=== PATIENT | female | born 1955 | race Hispanic/Latino ===

== ENCOUNTER 2024-05-01 20:28 | Emergency (ER) | payer OTHER ==
[2024-05-01] MEDS ORDERED: ZIPRASIDONE MESYLA 20 MG/VIAL IM ONE (20:58)
[2024-05-01] MEDS ORDERED: WATER FOR INJ,STERILE 10 ML ONE (20:59)
[2024-05-01] MEDS ORDERED: LORazepam 2 MG/ML VIAL ONE (22:31)
[2024-05-01] MEDS ORDERED: DIAZEPAM 10 MG/2 ML INJ SYRINGE ONE (22:49)
[2024-05-01] MEDS ORDERED: NA CHLORIDE 0.9% 250 ML ONE (23:15)
[2024-05-01] MEDS ORDERED: NA CHLORIDE 0.9% 3,000 ML ONE (23:15)
[2024-05-01] MEDS ORDERED: ACETAMINOPHEN 650MG/RECT SUPP PR ONE (23:15)
[2024-05-01] MEDS ORDERED: VANCOMYCIN 1 GM/VIAL ONE (23:15)
[2024-05-01] MEDS ORDERED: ACETAMINOPHEN 325 MG/SUPP PR ONE (23:15)
[2024-05-01] MEDS ORDERED: NA CHLORIDE 0.9% 100 ML ONE (23:16)
[2024-05-01] MEDS ORDERED: CEFEPIME 1 GM/VIAL ONE ×2 (23:16→23:48)
[2024-05-01] MEDS ORDERED: MORPHINE 4 MG/ML SYR ONE (23:37)
[2024-05-01] MEDS ORDERED: propofoL 1,000 MG/100 ML VIAL IV ONE (23:38)
[2024-05-01 23:43] LABS: Absolute Monocytes 0.8 K/uL (0.1-1.3); Absolute Neutrophil 6.5 K/uL (1.8-8.0); Basophils % 0.1 % (0-1.3); Hematocrit 41.7 % (36.0-45.0); Hemoglobin 14.2 g/dL (12.0-15.0); Lymphocytes % 11.5 % (15.3-44.8); MCH 32.6 pg (27.0-35.0); MCV 95.9 fL (80-100); MPV 8.7 fL (7.6-11.3); Monocytes % 9.4 % (3.3-12.3); Platelets 145 thou/uL (152-406); RBC Red Blood Cell Count 4.34 M/uL (3.86-4.86); Red Cell Distribution Width 13.3 % (12.1-15.2)
[2024-05-01 23:44] LABS: PT Prothrombin Time 11.5 SECONDS (9.4-12.5); PTT, Activated Partial Thromb 27.8 SECONDS (24.3-36.9); Protime INR 1.03
[2024-05-02] LABS: SARS-CoV-2 Antigen CONTROL BLUE LINE VIS/BG OK; SARS-CoV-2 Antigen Rapid Res Negative (Negative)
--- NOTE | 2024-05-02 00:08 | RAD REPORT ---
ADDENDUM #1 THIS REPORT CONTAINS FINDINGS THAT MAY BE CRITICAL TO PATIENT CARE: The findings were verbally discus sed via telephone conference with Dr. Blaine Vallecillo on 05/02/2024 12:08 AM [facility]. The results were acknowledged and understood. Electronically signed by: Citlali Shepherd MD 05/02/2024 12:12 AM [facility] ([facility])[3] End of Addendum EXAM: CT Head Without Intravenous Contrast CLINICAL HISTORY: AMS. TECHNIQUE: Axial computed tomography images of the head/brain without intravenous contrast. Sagittal and coron al reformatted images were created and reviewed. This CT exam was performed using one or more of the following dose reduction techniques: automated exposure control, adjustment of the mA and/or kV according to patient size, and/or use of iterative reconstruction technique. COMPARISON: No relevant prior studies available. FINDINGS: Brain: Right frontal partially calcified dural based extra-axial mass measuring approximately 6.2 x 3.8 x 5.6 cm. Right frontal sulcal effacement and white matter edema. The inner table of the right frontal skull at the level of the mouth is indistinct and irregular. No hemorrhage. Midline shift: 8 mm [id number] midline shift. Ventricles: Partial effacement of the right frontal horn of the lateral ventricle. Bones/joints: Unremarkable. No acute fracture. Soft tissues: Left frontal scalp lipoma. Vasculature: There is atherosclerotic disease of the internal carotid arteries bilaterally. Sinuses: Unremarkable as visualized. No acute sinusitis. Mastoid air cells: Unremarkable as visualized. No mastoid effusion. IMPRESSION: 1. Right frontal extra-axial mass thought to reflect a meningioma with associated mass effect, jessica a and 8 mm [id number] midline shift. The inner table of the right frontal skull at the level of the mass is indistinct and irregular and may indicate an atypical or high-grade meningioma. MR with a nd without contrast is recommended for further characterization. 2. Other findings as above. Electronically signed by: Citlali Shepherd MD 05/02/2024 12:04 AM [facility] RP Due to temporary technical issues with the [employer] reporting system, reports are being karey d by the in-house radiologist without review as a courtesy to ensure prompt reporting the interpreting radiologist is fully responsible for the content of the report. Transcribed Date/Time: 05/02/2024 12:17 AM
[2024-05-02 00:10] LABS: Arterial Blood Carboxyhemoglob 0.9 % (0-1.5); Blood O2 Saturation 84.6 % (92-98.5)
[2024-05-02 00:12] LABS: Albumin 4.3 g/dL (3.4-5.0); Anion Gap 14.4 mEq/L (5.0-15.0); C-Reactive Protein 19.9 mg/L (<3.00); Globulin 4.5 g/dL (2.3-3.5); Protein, Total 8.8 g/dL (6.4-8.2); Thyroid Stimulating Hormone 2.29 uIU/mL (0.358-3.740)
[2024-05-02 00:13] LABS: Potassium 2.4 mEq/L (3.5-5.1)
[2024-05-02 00:14] LABS: Troponin High Sensitivity 134.3 pg/mL (<58.9)
--- NOTE | 2024-05-02 00:17 | RAD REPORT ---
EXAM: CT Chest, Abdomen and Pelvis With Intravenous Contrast CLINICAL HISTORY: Chest pain. TECHNIQUE: Axial computed tomography images of the chest, abdomen and pelvis with intravenous contrast. Sagitt al and coronal reformatted images were created and reviewed. This CT exam was performed using one or more of the following dose reduction techniques: automated exposure control, adjustment of the m A and/or kV according to patient size, and/or use of iterative reconstruction technique. COMPARISON: No relevant prior studies available. FINDINGS: CHEST: Lungs: Patchy dependent right upper and bilateral lower lobe opacities. Pleural space: Unremarkable. No significant effusion. No pneumothorax. Heart: The heart is mildly enlarged. Coronary artery calcification. No significant pericardial ef fusion. ABDOMEN: Liver: Unremarkable. No mass. Gallbladder and bile ducts: Unremarkable. No calcified stones. No ductal dilation. Pancreas: Unremarkable. No ductal dilation. No mass. Spleen: Unremarkable. No splenomegaly. Adrenals: Unremarkable. No mass. Kidneys and ureters: Normal renal cortical enhancement. No calculi. No hydronephrosis. Bilateral renal cysts largest at the anterior mid pole on the right measuring 3.8 cm. No follow-up imaging is recommended. JACR 2018 Jul; [id number], Management of the Incidental Renal Mass on CT, [employer] 2020; [id number], Bosniak Classification of Cystic Renal Masses, Version 2019.. Stomach and bowel: Unremarkable. No obstruction. No mucosal thickening. PELVIS: Appendix: Normal caliber appendix. No findings to suggest acute appendicitis. Bladder: The urinary bladder is decompressed by a Steve catheter. Reproductive: Large lobulated fibroid uterus. No adnexal mass. CHEST, ABDOMEN and PELVIS: Intraperitoneal space: Unremarkable. No significant fluid collection. No free air. Bones/joints: Multilevel spondylosis. No acute fracture. No dislocation. Soft tissues: Unremarkable. Vasculature: Mild atherosclerotic disease. No aortic aneurysm. Lymph nodes: Unremarkable. No enlarged lymph nodes. IMPRESSION: 1. Patchy dependent right upper and bilateral lower lobe opacities (atelectasis and/or infiltrate). 2. No acute abnormality identified within the abdomen and pelvis. 3. Other findings as above. Electronically signed by: Citlali Shepherd MD 05/02/2024 12:12 AM [facility] Due to temporary technical issues with the [employer] reporting system, reports are being karey d by the in-house radiologist without review as a courtesy to ensure prompt reporting the interpreting radiologist is fully responsible for the content of the report. Transcribed Date/Time: 05/02/2024 12:17 AM
[2024-05-02] MEDS ORDERED: HYDRALAZINE HCL 20 MG/ML VIAL ONE (00:26)
[2024-05-02 00:45] LABS: Barbiturates NEGATIVE (NEGATIVE); Benzodiazepines NEGATIVE (NEGATIVE); Cocaine NEGATIVE (NEGATIVE); METHAMPHETAM NEGATIVE (NEGATIVE); Methadone NEGATIVE (NEGATIVE); Opiates NEGATIVE (NEGATIVE); Phencyclidine NEGATIVE (NEGATIVE); THC Cannibis POSITIVE (NEGATIVE)
[2024-05-02 00:51] LABS: Specific Gravity 1.024 (1.005-1.030); Sqamous Epithelial <5 /HPF (None Seen); Urine Bacteria None Seen /HPF (<20); Urine Bilirubin NEGATIVE (Negative); Urine Blood 3+ (Negative); Urine Clarity Clear (Clear); Urine Color Light-Yellow (Yellow); Urine Culture Reflex Order NOT NEEDED; Urine Glucose NEGATIVE (Negative); Urine Ketones 2+ (Negative); Urine Microscopic Reflex YN ORDER UMIC; Urine Mucus Slight /HPF (None Seen); Urine Nitrite NEGATIVE (Negative); Urine Protein 1+ (Negative); Urine RBC 21-50 /HPF (None Seen); Urine Urobilinogen Normal (Normal); Urine WBC <5 /HPF (<5); Urine pH 6.5 (5.0-7.0)
[2024-05-02] MEDS ORDERED: KCL 20 MEQ/100 mL IVPB 200 ML IV ONE (00:57)
[2024-05-02] MEDS ORDERED: FENTANYL CITR 100 MCG/2 ML ONE (01:00)
[2024-05-02] MEDS ORDERED: NA CHLORIDE 0.9% 50 ML ONE ×2 (01:00→01:38)
--- NOTE | 2024-05-02 01:03 | ER ---
Nurse's Notes [facility] Name: Nancy Stiles Age: 68 yrs Sex: Female : 1955 Arrival Date: 05/01/2024 Time: 20:28 Bed 3 Private MD: Diagnosis: Cerebral Edema Presentation: 05/01 21:06 Chief complaint: EMS states: toned out for unwitnessed fall and AMS. unsure of which al5 event occurred first. patient was found laying in bed with a cup of wine at the bedside. per son, she was normal this morning and she had went to work. Coronavirus screen: At this time, the client does not indicate any symptoms associated with coronavirus-19. Ebola Screen: No symptoms or risks identified at this time. Initial Sepsis Screen: Does the patient meet any 2 criteria? Temp <36.0*C (96.8*F)) or > 38.3*C (100.9*F). Altered Mental Status. Yes Does the patient have a suspected source of infection? No. Patient's initial sepsis screen is negative. Risk Assessment: Do you want to hurt yourself or someone else? Unable to obtain. Onset of symptoms was May 01, 2024. 21:06 Method Of Arrival: EMS: [facility] al5 21:06 Acuity: NII 3 al5 Triage Assessment: 21:17 General: Appears in no apparent distress. Behavior is combative, restless. Pain: Unable al5 to use pain scale. Patient is disoriented. EENT: No signs and/or symptoms were reported regarding the EENT system. Neuro: Level of Consciousness is awake, confused, Oriented to none. Cardiovascular: Capillary refill < 3 seconds. Respiratory: Airway is patent Respiratory effort is even, unlabored, Respiratory pattern is regular, symmetrical. GI: Abdomen is flat, non-distended, Abd is soft X 4 quads Abdomen is tender to palpation in right lower quadrant and left lower quadrant. :. Derm: Skin is intact, is healthy with good turgor, Skin is normal, Skin temperature is hot. Musculoskeletal: No signs and/or symptoms reported regarding the musculoskeletal system. Historical: - Allergies: 21:16 No Known Allergies; al5 - PMHx: 21:16 Hypertensive disorder; al5 - PSHx: 21:16 None; al5 - Immunization history:: Adult Immunizations up to date. - Infectious Disease History:: Denies. - Social history:: Smoking status: unknown. - Family history:: not pertinent. Screenin:19 [facility] ED Fall Risk Assessment (Adult) History of falling in the last 3 months, al5 including since admission No falls in past 3 months (0 pts) Confusion or Disorientation Yes (5 pts) Intoxicated or Sedated No (0 pts) Impaired Gait No (0 pts) Mobility Assist Device Used No (0 pt) Altered Elimination No (0 pt) Score/Fall Risk Level 0 - 2 = Low Risk Oriented to surroundings, Maintained a safe environment, Hourly rounding (assess needs \T\ fall precautionary measures) done. Abuse screen: Denies threats or abuse. Denies injuries from another. Nutritional screening: No deficits noted. Tuberculosis screening: No symptoms or risk factors identified. Assessment: 21:19 Reassessment: see triage assessment; unable to perform any interventions at this time al5 due to patient being combative and altered. patient aaox0, provider notified and aware. see [facility] for geodon order. medication given as ordered. patient on the monitor with family at bedside, will reassess. 21:37 Reassessment: No changes from previously documented assessment. Patient and/or family al5 updated on plan of care and expected duration. Pain level reassessed. patient restless, but not combative at this time. patient still aaox0. this nurse unsuccessful at obtaining EKG or IV access due to patient still being uncooperative and restless. family at bedside attempting to explain to patient the importance of getting these, patient not alert and oriented enough to understand. provider notified and aware. 22:40 Reassessment: No changes from previously documented assessment. patient still combative jb4 and agitated despite medication orders. provider notified and aware. 22:45 Reassessment: Pt continues to be combative after Ativan administration. received verbal jb4 order to give 10mg of Valium IVP. 23:12 Reassessment: Pt is back from CT, is now awake again and more agitated. jb4 23:19 Reassessment: No changes from previously documented assessment. patient aoox0, al5 currently still restless and agitated. provider notified and aware. 23:28 Reassessment: patient intubated at this time. patient has 8.0 ET tube measuring 22 at al5 the lip. patient tolerated procedure well. RT at bedside, patient being placed on ventilator. patient currently in no apparent distress. 05/02 00:00 Reassessment: Patient appears in no apparent distress at this time. General: Appears in al5 no apparent distress. Neuro: Hernandez Agitation-Sedation Scale (RASS): -3 Moderate Sedation Oriented to none Pupils are PERRLA, Pupil Size: 3mm. Cardiovascular: Capillary refill < 3 seconds Patient's skin is warm and dry. Respiratory: Airway via oral intubation Respiratory effort is even, unlabored, Respiratory pattern is regular, symmetrical, Ventilator assessment: ET Tube: 8.0 22 cm at lip Tidal Volume: 400 Respiratory Rate: 16 FiO2: 75% PEEP: 5 HOB > 30 degrees. GI: NGT in place, to gravity drainage. to suction. intermittent. GI: Abdomen is flat, non-distended, Last BM was May 01, 2024. : Guerin in place to gravity drainage clamped. EENT: No signs and/or symptoms were reported regarding the EENT system. Derm: Skin is intact, Skin is pink, warm \T\ dry. normal. Musculoskeletal: No signs and/or symptoms reported regarding the musculoskeletal system. 01:00 Reassessment: Patient appears in no apparent distress at this time. No changes from al5 previously documented assessment. Patient and/or family updated on plan of care and expected duration. Pain level reassessed. 02:00 Reassessment: Patient appears in no apparent distress at this time. No changes from al5 previously documented assessment. Patient and/or family updated on plan of care and expected duration. Pain level reassessed. 02:35 Reassessment: gave report to BETO Sandoval at [facility]. al5 03:00 Reassessment: Patient appears in no apparent distress at this time. No changes from al5 previously documented assessment. Patient and/or family updated on plan of care and expected duration. Pain level reassessed. 03:32 Reassessment: Patient appears in no apparent distress at this time. Patient and/or al5 family updated on plan of care and expected duration. Pain level reassessed. EMS arrived to transport patient to [facility]. report given to EMS. patient family updated and was able to see patient before being transported. Vital Signs: 05/01 21:04 BP 138 / 81; Pulse 68; Resp 19; Pulse Ox 97% on R/A; al5 21:06 BP 138 / 101; Pulse 65; Resp 18; Temp 101(R); Pulse Ox 98% on R/A; Weight 63.5 kg; al5 Height 5 ft. 0 in. ; 21:25 BP 184 / 82; Pulse 73; Resp 20; Pulse Ox 96% on R/A; rv1 22:45 BP 161 / 92; Pulse 83; Resp 22; Pulse Ox 100% ; rv1 23:30 BP 169 / 94; Pulse 115; Resp 22; Pulse Ox 100% ; rv1 05/02 00:30 BP 206 / 92; Pulse 105; Resp 18; Pulse Ox 100% ; rv1 00:50 BP 204 / 97; Pulse 72; Resp 18; Pulse Ox 100% on ETT vent; rv1 01:00 BP 207 / 98; Pulse 112; Resp 17; Pulse Ox 100% on ETT vent; rv1 01:30 BP 131 / 76; Pulse 99; Resp 19; Pulse Ox 100% on ETT vent; rv1 02:00 BP 136 / 79; Pulse 78; Resp 16; Pulse Ox 100% on ETT vent; rv1 02:20 BP 132 / 72; Pulse 63; Resp 16; Temp 98.3(Ca); Pulse Ox 100% on ETT vent; rv1 05/01 21:06 Body Mass Index 27.34 (63.50 kg, 152.4 cm) al5 [place] Coma Score: 00:54 Eye Response: to voice(3). Motor Response: localizes pain(5). Verbal Response: sp4 inappropriate words(3). Total: 11. ED Course: 05/01 20:32 Patient arrived in ED. rv1 20:35 Blaine Vallecillo MD is Attending Physician. sp4 21:04 Magalys Triana RN is Primary Nurse. al5 21:15 EKG attempted patient disoriented and combative not allowing EKG to be completed, ty patient repeatedly removing stickers after being place on patients body. 21:16 Triage completed. al5 21:19 Arm band placed on left wrist. Patient placed in the treatment room, on a stretcher, on al5 pulse oximetry. 21:20 Patient has correct armband on for positive identification. Placed in gown. Bed in low al5 position. Call light in reach. Side rails up X2. Adult w/ patient. Provided Education on: plan of care to family. 21:20 Guerin cath inserted, using sterile technique, 16 Fr., by me, balloon inflated, to ty gravity drainage, clamped. temperature guerin catheter Pt restless, combative and disoriented during insertion of Guerin. 21:30 EKG attempted for second time patient disoriented and combative not allowing EKG to be ty completed, patient persistently removing stickers after being place on patients body as well as vitals machine (blood pressure cuff, and pulse ox). Family present and attempting to explain to patient to leave stickers on body, patient still removing stickers before EKG can be completed. 21:43 Radiology exam delayed due to lab results not completed at this time. IV insertion jc4 attempt and/or patient not having appropriate IV at this time. 22:40 One-on-one care X 45 minutes. jb4 23:07 CT Head Brain wo Cont In Process Unspecified. EDMS 23:08 CT Chest, Abdomen, Pelvis - W/Contrast In Process Unspecified. EDMS 23:28 Assisted provider with intubation using 8.0 mm ETT via oral route. ET tube secured at al5 22cm at the lips. Set up intubation tray. Intubated by Blaine Vallecillo MD Placement verified by CO2 detector w/ + color change, auscultating bilateral breath sounds, End-tidal CO2 montioring CXR, Patient tolerated well. 05/02 00:00 Assisted provider with central line placement. Set up central line tray. Triple lumen al5 line placed in left internal jugular. Line placed by Blaine Vallecillo MD Placement verified by CXR, blood return, Dressed with Tegaderm, Blood was collected. Patient tolerated well. Before procedure, did Practitioner(s) obtain informed consent? Yes. Patient \T\ family education about procedure, CLABSI prevention and S/S of infection? Yes. Time-out/Briefing performed prior to start of procedure? Yes. Was handwashing/sanitizing done immediately prior to procedure? Yes. Was patient positioned to in a way to prevent air embolism? Yes. Was procedure site sterilized? Yes, with chlorhexidine. Was the site allowed to dry? Yes. Was local anesthetic and/or sedation utilized? Yes. During the procedure, did the Practitioner(s) maintain a sterile field? Yes. Were unused ports clamped during insertion? Yes. Was a 2nd qualified MD obtained after 3 unsuccessful insertion attempts? No. Was blood aspirated from each lumen? Yes. After the procedure, did the Practitioner(s) clean the site and apply a sterile dressing? Yes. 00:21 XRAY Chest (1 view) In Process Unspecified. EDMS 00:25 Abdomen 1 View (KUB) In Process Unspecified. EDMS 00:33 central line access consents explained to patient family by physician and this nurse. al5 patient verbalized understanding. see chart for central line access consent. 01:20 NGT: inserted 16 Fr. via left nare. to intermittent suction. Returned gastric contents. al5 Returned bright red blood. provider notified and aware. see MAR for txa and protonix orders. 02:35 Report given to BETO Sandoval at [facility]. al5 03:32 One-on-one care X 360 minutes. al5 03:32 Patient transferred, IV remains in place. al5 Administered Medications: 05/01 21:22 Drug: Geodon IM 40 mg IM once Route: IM; Site: left deltoid; al5 22:50 Follow up: Response: No adverse reaction; RASS: Combative (+4) al5 22:40 Drug: Ativan IVP 2 mg IVP once Route: IVP; Site: right antecubital; jb4 22:50 Follow up: Response: No adverse reaction; RASS: Combative (+4) al5 22:50 Drug: Diazepam IVP 10 mg IVP once Route: IVP; Site: right antecubital; jb4 22:50 Follow up: Response: No adverse reaction; RASS: Combative (+4) al5 22:50 Follow up: Response: No adverse reaction; RASS: Combative (+4) al5 23:23 Drug: Etomidate IVP 20 mg IVP once Route: IVP; Site: right antecubital; jb4 05/02 00:53 Follow up: Response: No adverse reaction al5 05/01 23:27 Drug: Rocuronium IVP 100 mg IVP once Route: IVP; Site: right antecubital; jb4 05/02 00:53 Follow up: Response: No adverse reaction al05/01 23:34 Drug: Acetaminophen MT Suppository 650 mg MT once Route: MT; [facility] 05/02 00:50 Follow up: Response: No adverse reaction; Temperature is decreased 05/01 23:34 Drug: Acetaminophen MT Suppository 325 mg MT once Route: MT; [facility] 05/02 00:50 Follow up: Response: No adverse reaction; Temperature is decreased [facility] 05/01 23:37 Drug: morphine IVP or IV 4 mg IVP once over 4 mins Route: IVP; Infused Over: 4 mins; al5 Site: left antecubital; 05/02 02:15 Follow up: Response: No adverse reaction; No change in condition il05/01 23:45 Drug: Propofol IV 5 mcg/kg/min IV at calculated rate See Administration Instructions; [facility] Standard concentration 1000 mg / 100 mL; Recommended max rate 50 mcg/kg/min; Titrate 5 mcg/kg/min every 5 minutes to achieve goal (see titration policy); Goal parameter RASS score 0 to -2 Route: IV; Rate: calculated rate; Site: right antecubital; 23:45 Follow up: Rate change 50 mcg/kg/min il05/02 03:35 Follow up: Response: No adverse reaction; IV Status: Infusion continued upon transfer 05/01 23:48 Not Given (patient disoriented and combativee): [id number] mg PO once 05/02 00:00 Drug: NS 0.9% IV (30 ml/kg) 30 ml/kg IV at bolus once; Sepsis Protocol; to be given as al5 a bolus over 90 minutes Route: IV; Rate: bolus; Site: left jugular; 02:14 Follow up: Response: No adverse reaction; IV Status: Completed infusion; IV Intake: al5 1900ml 00:00 Drug: Cefepime IVPB 2 grams IVPB at 200 ml/hr once over 30 mins; (mix in NS 100 mL) al5 Route: IVPB; Rate: 200 ml/hr; Infused Over: 30 mins; Site: left antecubital; 01:41 Follow up: Response: No adverse reaction; IV Status: Completed infusion; IV Intake: al5 100ml 00:00 Drug: vancoMYCIN IVPB 1 grams IVPB once over 2 hrs Route: IVPB; Infused Over: 2 hrs; al5 Site: left jugular; 01:41 Follow up: Response: No adverse reaction; IV Status: Completed infusion; IV Intake: al5 250ml 00:00 Drug: NS 0.9% IV 1000 ml IV at 125 ml/hr continuous Route: IV; Rate: 125 ml/hr; Site: al5 left jugular; 03:38 Follow up: Response: No adverse reaction; IV Status: Infusion continued upon transfer al5 00:02 Drug: Propofol IVP 100 mg IVP once; Document RASS score. Route: IVP; Site: right al5 antecubital; 02:14 Follow up: Response: No adverse reaction; RASS: Agitated (+2) al5 00:51 Not Given (Physician Discretion): ondansetron 4 mg IVP once; over 2 minutes al5 01:20 Drug: fentaNYL (PF) IV 25 mcg/kg/h IV at calculated rate See Administration al5 Instructions; (Standard concentration 500 mcg / 50 mL NS [10 mcg / 1 mL); Recommended max rate 4 mcg/kg/hr; Titrate 0.25 mcg/kg/hr as often as every 3 minutes to achieve goal (see titration policy); Goal parameter RASS score 0 to -2 Route: IV; Rate: calculated rate; Site: left jugular; 01:35 Follow up: Response: No adverse reaction; Rate change 200 calculated rate; per al5 providers order; 200 mcg/hr 03:32 Follow up: Response: No adverse reaction; IV Status: Infusion continued upon transfer al5 01:38 Drug: Potassium Chloride IV 20 mEq IV at calculated rate once; administer over 1-2 al5 hours Route: IV; Rate: calculated rate; Site: left antecubital; 03:34 Follow up: Response: No adverse reaction; IV Status: Completed infusion; IV Intake: al5 100ml 01:40 Drug: Pantoprazole IVP 80 mg IVP once Route: IVP; Site: right antecubital; ha1 02:15 Follow up: Response: No adverse reaction al5 01:54 Drug: Rocuronium IVP 100 mg IVP once Route: IVP; Site: right antecubital; jb4 02:17 Follow up: Response: No adverse reaction; RASS: Moderate sedation (-3) al5 02:00 Drug: Midazolam IVP or IV 0.01 mg/kg/h IV at calculated rate See Administration al5 Instructions; (Standard concentration: 100 mg / 100 mL NS); Recommended max rate 0.1 mg/kg/hr; Titrate 0.01 mg/kg/hr as often as every 30 minutes to achieve goal (see titration policy); Goal parameter RASS 0 to -2 Route: IV; Rate: calculated rate; Site: left jugular; 03:32 Follow up: Response: No adverse reaction; IV Status: Infusion continued upon transfer al5 02:05 Drug: tranexamic acid 1000 mg IV at calculated rate once; administer at a rate not to al5 exceed 100 mg per min Route: IV; Rate: calculated rate; Site: right antecubital; 02:14 Follow up: Response: No adverse reaction; IV Status: Completed infusion; IV Intake: al5 100ml 02:14 Drug: Pantoprazole IV 8 mg/hr IV at 25 ml/hr continuous; (Standard dilution is 80 mg in al5 250 mL NS) Route: IV; Rate: 25 ml/hr; Site: left antecubital; 03:32 Follow up: Response: No adverse reaction; IV Status: Infusion continued upon transfer al5 03:19 Drug: Mannitol IV 25% 0.5 g/kg IV at per protocol once; Administer over 2-6 hours kl {Note: 31.75 gm bolus .} Route: IV; Rate: 31.75 bolus; Site: left antecubital; 03:32 Follow up: Response: No adverse reaction; IV Status: Completed infusion; 31.75 gm bolus al5 completed 03:33 Drug: Potassium Chloride IV 20 mEq IV at calculated rate once; administer over 1-2 al5 hours Route: IV; Rate: calculated rate; Site: left jugular; 03:33 Follow up: Response: No adverse reaction; IV Status: Infusion continued upon transfer al5 03:33 Not Given (patient responding to sedations welll): morphineor iv 4 mg IVP once over 4 al5 mins 03:34 Not Given (patient responding to sedation medicines given, mary PÉREZ and this nurse al5 returned medication to [facility]): midazolamor iv 5 mg IVP once 03:37 Not Given (patient being transferredd): mupirocinointment 2 % 1 application Topical onceal5 Medication: 05/01 21:19 VIS not applicable for this client. al5 Intake: 05/02 01:41 IV: 100ml; Total: 100ml. al5 01:41 IV: 250ml; Total: 350ml. al5 02:14 IV: 100ml; Total: 450ml. al5 02:14 IV: 1900ml; Total: 2350ml. al5 03:34 IV: 100ml; Total: 2450ml. al5 Outcome: 01:02 ER care complete, transfer ordered by . sp4 03:32 Transferred by ground EMS [facility] to [facility], al5 Transfer form completed. 03:32 Condition: stable 03:32 Instructed on the need for transfer, 05:05 Patient left the ED. al5 Signatures: Dispatcher [employer] EDMS Michelle Mccullough RN RN kl Bryson, James, RN RN jb4 Katja Monzon RN RN ha1 Kourtney Alejo rv1 Blaine Vallecillo MD MD sp4 Alex Tuttle Amanda, RN RN al5 Jesse Dick jc4 Corrections: (The following items were deleted from the chart) 05/01 21:22 21:19 Reassessment: see triage assessment al5 al5 23:54 21:20 Guerin cath inserted, using sterile technique, 16 Fr., by ia, balloon inflated, to ty gravity drainage, clamped. temperature guerin catheter al5 05/02 02:41 00:00 BP 119 / 78; Pulse 72bpm; Resp 18bpm; Pulse Ox 100% ET / Ventilator; rv1 rv1 02:42 00:30 BP 206 / 92; Pulse 105bpm; Resp 18bpm; Pulse Ox 100% ET / Ventilator; rv1 rv1 04:21 05/01 22:40 Reassessment: No changes from previously documented assessment. Patient is jb4 alert, oriented x 3, equal unlabored respirations, skin warm/dry/pink. patient still combative and agitated despite medication orders. provider notified and aware. jb4 05/02 04:21 05/01 21:37 Reassessment: No changes from previously documented assessment. Patient jb4 and/or family updated on plan of care and expected duration. Pain level reassessed. Patient is alert, oriented x 3, equal unlabored respirations, skin warm/dry/pink. patient altered, but is less agitated at this time. this nurse unsuccessful in being able to start an IV or obtain an EKG due to patient being restless, agitated, and uncooperative. provider notified and aware. jb4 05/02 04:21 03:32 Reassessment: Patient appears in no apparent distress at this time. Patient jb4 and/or family updated on plan of care and expected duration. Pain level reassessed. Patient is alert, oriented x 3, equal unlabored respirations, skin warm/dry/pink. patient being transferred at this time with EMS. family able to see patient before patient transferred. jb4 03:00 Reassessment: Patient appears in no apparent distress at this time. No changes jb4 from previously documented assessment. Patient and/or family updated on plan of care and expected duration. Pain level reassessed. Patient is alert, oriented x 3, equal unlabored respirations, skin warm/dry/pink. patient family notified that report has been called and EMS en route. patient family received patient belongings to take home. jb4 04:34 05/01 21:20 No provider procedures requiring assistance completed. al5 al5 05/02 04:53 05/01 21:37 Reassessment: No changes from previously documented assessment. Patient al5 and/or family updated on plan of care and expected duration. Pain level reassessed. patient restless, but not combative at this time. this nurse unsuccessful at obtaining EKG or IV access due to patient still being uncooperative and restless. family at bedside attempting to explain to patient the importance of getting these, patient not alert and oriented enough to understand. provider notified and aware. al5 05/02 05:01 04:58 Response: No adverse reaction; Rate change 200 calculated rate; per providers al5 order; 200 mcg/hr al5
--- NOTE | 2024-05-02 01:03 | EDPHYS ---
Physician Documentation [facility] Name: Nancy Stiles Age: 68 yrs Sex: Female : 1955 Arrival Date: 05/01/2024 Time: 20:28 Bed 3 Private MD: ED Physician Blaine Vallecillo HPI: 05/01 20:38 This 68 yrs old Female presents to ER via Unassigned with complaints of AMS. sp4 05/02 00:54 68-year-old female presents with acute mental status changes. Reported history of sp4 alcohol abuse. Patient presents with fever, confusion, agitated behavior, incontinent of bowel and bladder, EMS reports patient has history of alcohol abuse based on a story by her family and what was reported by the family. Historical: - Allergies: 05/01 21:16 No Known Allergies; al5 - PMHx: 21:16 Hypertensive disorder; al5 - PSHx: 21:16 None; al5 - Immunization history:: Adult Immunizations up to date. - Infectious Disease History:: Denies. - Social history:: Smoking status: unknown. - Family history:: not pertinent. ROS: 05/02 00:54 Constitutional: Positive Altered mental status, positive fever, sp4 All other systems are negative, Unable to obtain ROS due to altered mental status, Exam: 00:54 Constitutional: This is a well developed, well nourished patient who febrile on sp4 arrival, tachycardic, acutely agitated. Patient not able to provide any meaningful history. Head/Face: Normocephalic, atraumatic. Eyes: Pupils equal round and reactive to light, extra-ocular motions intact. Lids and lashes normal. Conjunctiva and sclera are not injected. Cornea within normal limits. Periorbital areas with no swelling, redness, or edema. ENT: Nares patent. No nasal discharge, no septal abnormalities noted. Tympanic membranes are normal and external auditory canals are clear. Oropharynx with no redness, swelling, or masses, exudates, or evidence of obstruction, uvula midline. Mucous membranes moist. Neck: Trachea midline, no thyromegaly or masses palpated, and no cervical lymphadenopathy. Supple, full range of motion without nuchal rigidity, or vertebral point tenderness. Chest/axilla: Normal chest wall appearance and motion. Nontender with no deformity. No lesions are appreciated. Cardiovascular: Regular rate and rhythm with a normal S1 and S2. No gallops, murmurs, or rubs. Normal PMI, no JVD. No pulse deficits. Respiratory: Lungs have equal breath sounds bilaterally, clear to auscultation and percussion. No rales, rhonchi or wheezes noted. No increased work of breathing, no retractions or nasal flaring. Abdomen/GI: Soft, with normal bowel sounds. No distension or tympany. No guarding or rebound. No evidence of tenderness throughout. Back: No spinal tenderness. No costovertebral tenderness. Female : Normal external genitalia. Skin: Warm, dry with normal turgor. Normal color with no rashes, no lesions, and no evidence of cellulitis. MS/ Extremity: Pulses equal, no cyanosis. Neurovascular intact. Full, normal range of motion. Neuro: Awake , acutely agitated, moves all extremities. Further exam is not possible Psych: Awake, agitated, further exam is not possible 00:54 ECG was reviewed by the Attending Physician. EKG at 0036 sinus tachycardia first-degree AV block rate 116, left ventricular hypertrophy, ST depressions V4 V5 and V6. Vital Signs: 05/01 21:04 BP 138 / 81; Pulse 68; Resp 19; Pulse Ox 97% on R/A; al5 21:06 BP 138 / 101; Pulse 65; Resp 18; Temp 101(R); Pulse Ox 98% on R/A; Weight 63.5 kg; al5 Height 5 ft. 0 in. ; 21:25 BP 184 / 82; Pulse 73; Resp 20; Pulse Ox 96% on R/A; rv1 22:45 BP 161 / 92; Pulse 83; Resp 22; Pulse Ox 100% ; rv1 23:30 BP 169 / 94; Pulse 115; Resp 22; Pulse Ox 100% ; rv1 05/02 00:30 BP 206 / 92; Pulse 105; Resp 18; Pulse Ox 100% ; rv1 00:50 BP 204 / 97; Pulse 72; Resp 18; Pulse Ox 100% on ETT vent; rv1 01:00 BP 207 / 98; Pulse 112; Resp 17; Pulse Ox 100% on ETT vent; rv1 01:30 BP 131 / 76; Pulse 99; Resp 19; Pulse Ox 100% on ETT vent; rv1 02:00 BP 136 / 79; Pulse 78; Resp 16; Pulse Ox 100% on ETT vent; rv1 02:20 BP 132 / 72; Pulse 63; Resp 16; Temp 98.3(Ca); Pulse Ox 100% on ETT vent; rv1 05/01 21:06 Body Mass Index 27.34 (63.50 kg, 152.4 cm) al5 [employer] [place] Score: 00:54 Eye Response: to voice(3). Motor Response: localizes pain(5). Verbal Response: sp4 inappropriate words(3). Total: 11. Procedures: 00:50 Intubation: Ventilated with 100% NRB prior to procedure. Intubated Glyde Scope assisted sp4 intubation using S 3 with 8.0 mm ETT. was successful on first attempt. Ventilated with Ambu bag. ventilator. Tube secured at center of mouth measured 21 cm at lip. Placement verified by CXR, CO2 detector with (+) color change, auscultating bilateral breath sounds, O2 saturation after procedure was 100 %. Patient tolerated well, Airway secured with Glyde scope assisted intubation . Central Line: the site was prepped with Betadine, in sterile fashion, a triple lumen catheter was inserted, in the left internal jugular vein, in 1 attempts. placement was verified, by CXR, by blood return, Ultrasound guided Central line , the site was dressed with 4X4s, Tegaderm, using sterile technique, the patient tolerated the procedure, well, Central line placed for additional drips. MDM: 05/01 20:42 Medical Screening Exam initiated sp4 05/02 00:48 ED course: THIS REPORT CONTAINS FINDINGS THAT MAYBE CRITICAL TO PATIENT CARE: The sp4 findings were verbally discussed via telephone conference with Dr. Blaine Vallecillo on 05/02/2024 12:08 AM [facility] [employer]. The results were acknowledged and understood. Electronically signed by: Citlali Shepherd MD 05/02/2024 12:[address] [facility] End of Addendum EXAM: CT Head Without Intravenous Contrast CLINICAL HISTORY: AMS. TECHNIQUE: Axial computed tomography images of the head/brain without intravenous contrast. Sagittal and coronal reformatted images were created and reviewed. This CT exam was performed using one or more of the following dose reduction techniques: automated exposure control, adjustment of the mA and/or kV according to patient size, and/or use of iterative reconstruction technique. COMPARISON: No relevant prior studies available. FINDINGS: Brain: Right frontal partially calcified dural based extra-axial mass measuring approximately 6.2 x 3.8 x 5.6 cm. Right frontal sulcal effacement and white matter edema. The inner table of the right frontal skull at the level of the mouth is indistinct and irregular. No hemorrhage. Midline shift: 8 mm [id number] midline shift. Ventricles: Partial effacement of the right frontal horn of the lateral ventricle. Bones/joints: Unremarkable. No acute fracture. Soft tissues: Left frontal scalp lipoma. Vasculature: There is atherosclerotic disease of the internal carotid arteries bilaterally. Sinuses: Unremarkable as visualized. No acute sinusitis. Mastoid air cells: Unremarkable as visualized. No mastoid effusion. IMPRESSION: 1. Right frontal extra-axial mass thought to reflect a meningioma with associated mass effect, edema and 8 mm [id number] midline shift. The inner table of the right frontal skull at the level of the mass is indistinct and irregular and may indicate an atypical or high grade meningioma. MR with and without contrast is recommended for further characterization. 2. Other findings as above. Electronically signed by: Citlali Shepherd MD 05/02/2024 12:04 AM. ED course: EXAM: CT Chest, Abdomen and Pelvis With Intravenous Contrast CLINICAL HISTORY: Chest pain. TECHNIQUE: Axial computed tomography images of the chest, abdomen and pelvis with intravenous contrast. Sagittal and coronal reformatted images were created and reviewed. This CT exam was performed using one or more of the following dose reduction techniques: automated exposure control, adjustment of the mA and/or kV according to patient size, and/or use of iterative reconstruction technique. COMPARISON: No relevant prior studies available. FINDINGS: CHEST: Lungs: Patchy dependent right upper and bilateral lower lobe opacities. Pleural space: Unremarkable. No significant effusion. No pneumothorax. Heart: The heart is mildly enlarged. Coronary artery calcification. No significant pericardial effusion. ABDOMEN: Liver: Unremarkable. No mass. Gallbladder and bile ducts: Unremarkable. No calcified stones. No ductal dilation. Pancreas: Unremarkable. No ductal dilation. No mass. Spleen: Unremarkable. No splenomegaly. Adrenals: Unremarkable. No mass. Kidneys and ureters: Normal renal cortical enhancement. No calculi. No hydronephrosis. Bilateral renal cysts largest at the anterior mid pole on the right measuring 3.8 cm. No follow-up imaging is recommended. JACR 2018 Jul; 264-273, Management of the Incidental Renal Mass on CT, [employer] 2020; [id number], Bosniak Classification of Cystic Renal Masses, Version 2019.. Stomach and bowel: Unremarkable. No obstruction. No mucosal thickening. PELVIS: Appendix: Normal caliber appendix. No findings to suggest acute appendicitis. Bladder: The urinary bladder is decompressed by a Steve catheter. Reproductive: Large lobulated fibroid uterus. No adnexal mass. CHEST, ABDOMEN and PELVIS: Intraperitoneal space: Unremarkable. No significant fluid collection. No free air. Bones/joints: Multilevel spondylosis. No acute fracture. No dislocation. Soft tissues: Unremarkable. Vasculature: Mild atherosclerotic disease. No aortic aneurysm. Lymph nodes: Unremarkable. No enlarged lymph nodes. IMPRESSION: 1. Patchy dependent right upper and bilateral lower lobe opacities (atelectasis and/or infiltrate). 2. No acute abnormality identified within the abdomen and pelvis. 3. Other findings as above. Electronically signed by: Citlali Shepherd MD 05/02/2024 . ED course: EXAM: XR Chest, 1 View CLINICAL HISTORY: The patient is 68 years old and is Female; placement TECHNIQUE: Frontal view of the chest. COMPARISON: No relevant prior studies available. FINDINGS: Lungs: Unremarkable. No consolidation. Pleural space: Unremarkable. No pneumothorax. Heart: Unremarkable. Mediastinum: Unremarkable. Normal mediastinal contour. Bones/joints: No acute findings. Tubes, lines and devices: Endotracheal tube with tip 3.3 cm above the liliane. Left IJ central venous catheter with tip in the SVC. IMPRESSION: Endotracheal tube with tip 3.3 cm above the liliane. Electronically signed by: Chirag Olsen MD 05/02/2024. 01:35 Differential Diagnosis: CVA, electrolyte abnormality, alcohol intoxication, sp4 hypoglycemia, intracranial bleed, meningitis, overdose, pneumonia, seizure, sepsis. Data reviewed: vital signs, nurses notes, EMS record, lab test result(s), EKG, radiologic studies, CT scan, plain films. Consideration of Admission/Observation Escalation of care including admission/observation considered. Management of patient was discussed with the following: [employer] Administrator: Neurosurgery at [facility] , Cardiology [facility], Other Pulmonology at [facility] , patient accepted for transfer.. 05/01 20:39 Order name: Blood Culture Adult (2) [facility] 05/01 20:39 Order name: CBC with Diff; Complete Time: 00: [facility] 05/01 20:39 Order name: CMP; Complete Time: 00: [facility] 05/01 20:39 Order name: Lactate w/ 2H reflex if indic.; Complete Time: 00: [facility] 05/01 20:39 Order name: Protime (+inr); Complete Time: 00: [facility] 05/01 20:39 Order name: Ptt, Activated; Complete Time: 00: [facility] 05/01 20:39 Order name: Urinalysis w/ reflexes; Complete Time: 00:54 [facility] 05/01 20:39 Order name: ABG; Complete Time: 00: [facility] 05/01 20:39 Order name: Troponin High Sensitivity; Complete Time: 00: [facility] 05/01 20:39 Order name: BNP; Complete Time: 00: [facility] 05/01 20:40 Order name: AMMONIA; Complete Time: 00: [facility] 05/01 20:40 Order name: SARS RAPID; Complete Time: 00: [facility] 05/01 20:40 Order name: Influenza Screen (a \T\ B); Complete Time: 00: [facility] 05/01 20:42 Order name: CRP; Complete Time: 00: [facility] 05/01 20:42 Order name: TSH; Complete Time: 00: [facility] 05/01 20:42 Order name: T4 Free; Complete Time: 00: [facility] 05/01 21:52 Order name: Glucose, Ancillary Testing; Complete Time: 22:52 [facility] 05/01 23:05 Order name: CREATININE WHOLE BLOOD; Complete Time: 23:20 [facility] 05/01 23:20 Order name: Alcohol Level; Complete Time: 00: [facility] 05/01 23:20 Order name: Urine Drug Screen; Complete Time: 00:46 [facility] 05/01 20:40 Order name: CT Head Brain wo Cont [facility] 05/01 20:40 Order name: CT Chest, Abdomen, Pelvis - W/Contrast [facility] 05/01 23:58 Order name: XRAY Chest (1 view) [facility] 05/02 00:06 Order name: Abdomen 1 View (KUB) [facility] 05/01 20:39 Order name: Accucheck; Complete Time: 21:59 sp4 05/01 20:39 Order name: Cardiac monitoring; Complete Time: 23:46 sp4 05/01 20:39 Order name: Cath; Complete Time: 21:22 sp4 05/01 20:39 Order name: EKG - Nurse/Tech; Complete Time: 00:51 sp4 05/01 20:39 Order name: IV Saline Lock - Large Bore; Complete Time: 23:46 sp4 05/01 20:39 Order name: Labs collected and sent; Complete Time: 23:46 sp4 05/01 20:39 Order name: O2 Per Protocol; Complete Time: 21:22 sp4 05/01 20:39 Order name: O2 Sat Monitoring; Complete Time: 21:23 sp4 05/01 20:39 Order name: Vital Signs; Complete Time: 21:23 sp4 05/02 00:02 Order name: Central Line Dressing Kit; Complete Time: 00:51 sp4 05/02 00:02 Order name: Central Line Kit; Complete Time: 00:49 sp4 05/02 00:02 Order name: Chlorhexidine prep; Complete Time: 00:49 sp4 05/02 00:02 Order name: Consent for central line completed; Complete Time: 00:49 sp4 05/02 00:02 Order name: Line Caps x3; Complete Time: 00:49 sp4 05/02 00:02 Order name: NS Flushes x3; Complete Time: 00:49 sp4 05/02 00:02 Order name: Sterile Gloves; Complete Time: 00:49 sp4 05/02 00:02 Order name: Sterile Probe Cover; Complete Time: 00:49 sp4 05/02 00:03 Order name: NG Tube; Complete Time: 00:49 4 EC:54 Rate is 116 beats/min. Rhythm is regular, Normal Sinus Rhythm. QRS Hay is Normal. MI sp4 interval is prolonged. QRS interval is normal. QT interval is normal. T waves are Normal. ST Segment is depressed in leads V4, V5, V6, 1-2mm. Clinical impression: Sinus tachycardia. Interpreted by me. Reviewed by me. Administered Medications: 05/01 21:22 Drug: Geodon IM 40 mg IM once Route: IM; Site: left deltoid; al5 22:50 Follow up: Response: No adverse reaction; RASS: Combative (+4) al5 22:40 Drug: Ativan IVP 2 mg IVP once Route: IVP; Site: right antecubital; [facility] 22:50 Follow up: Response: No adverse reaction; RASS: Combative (+4) al5 22:50 Drug: Diazepam IVP 10 mg IVP once Route: IVP; Site: right antecubital; [facility] 22:50 Follow up: Response: No adverse reaction; RASS: Combative (+4) al5 22:50 Follow up: Response: No adverse reaction; RASS: Combative (+4) al5 23:23 Drug: Etomidate IVP 20 mg IVP once Route: IVP; Site: right antecubital; [facility] 05/02 00:53 Follow up: Response: No adverse reaction 05/01 23:27 Drug: Rocuronium IVP 100 mg IVP once Route: IVP; Site: right antecubital; [facility] 05/02 00:53 Follow up: Response: No adverse reaction 05/01 23:34 Drug: Acetaminophen MI Suppository 650 mg MI once Route: MI; [facility] 05/02 00:50 Follow up: Response: No adverse reaction; Temperature is decreased 05/01 23:34 Drug: Acetaminophen MI Suppository 325 mg MI once Route: MI; [facility] 05/02 00:50 Follow up: Response: No adverse reaction; Temperature is decreased 05/01 23:37 Drug: morphine IVP or IV 4 mg IVP once over 4 mins Route: IVP; Infused Over: 4 mins; [facility] Site: left antecubital; 05/02 02:15 Follow up: Response: No adverse reaction; No change in condition 05/01 23:45 Drug: Propofol IV 5 mcg/kg/min IV at calculated rate See Administration Instructions; [facility] Standard concentration 1000 mg / 100 mL; Recommended max rate 50 mcg/kg/min; Titrate 5 mcg/kg/min every 5 minutes to achieve goal (see titration policy); Goal parameter RASS score 0 to -2 Route: IV; Rate: calculated rate; Site: right antecubital; 23:45 Follow up: Rate change 50 mcg/kg/min [facility] 05/02 03:35 Follow up: Response: No adverse reaction; IV Status: Infusion continued upon transfer 05/01 23:48 Not Given (patient disoriented and combativee): [id number] mg PO once al5 05/02 00:00 Drug: NS 0.9% IV (30 ml/kg) 30 ml/kg IV at bolus once; Sepsis Protocol; to be given as al5 a bolus over 90 minutes Route: IV; Rate: bolus; Site: left jugular; 02:14 Follow up: Response: No adverse reaction; IV Status: Completed infusion; IV Intake: al5 1900ml 00:00 Drug: Cefepime IVPB 2 grams IVPB at 200 ml/hr once over 30 mins; (mix in NS 100 mL) al5 Route: IVPB; Rate: 200 ml/hr; Infused Over: 30 mins; Site: left antecubital; :41 Follow up: Response: No adverse reaction; IV Status: Completed infusion; IV Intake: al5 100ml 00:00 Drug: vancoMYCIN IVPB 1 grams IVPB once over 2 hrs Route: IVPB; Infused Over: 2 hrs; al5 Site: left jugular; :41 Follow up: Response: No adverse reaction; IV Status: Completed infusion; IV Intake: al5 250ml 00:00 Drug: NS 0.9% IV 1000 ml IV at 125 ml/hr continuous Route: IV; Rate: 125 ml/hr; Site: al5 left jugular; 03:38 Follow up: Response: No adverse reaction; IV Status: Infusion continued upon transfer al5 00:02 Drug: Propofol IVP 100 mg IVP once; Document RASS score. Route: IVP; Site: right al5 antecubital; 02:14 Follow up: Response: No adverse reaction; RASS: Agitated (+2) al5 00:51 Not Given (Physician Discretion): ondansetron 4 mg IVP once; over 2 minutes al5 01:20 Drug: fentaNYL (PF) IV 25 mcg/kg/h IV at calculated rate See Administration al5 Instructions; (Standard concentration 500 mcg / 50 mL NS [10 mcg / 1 mL); Recommended max rate 4 mcg/kg/hr; Titrate 0.25 mcg/kg/hr as often as every 3 minutes to achieve goal (see titration policy); Goal parameter RASS score 0 to -2 Route: IV; Rate: calculated rate; Site: left jugular; 01:35 Follow up: Response: No adverse reaction; Rate change 200 calculated rate; per al5 providers order; 200 mcg/hr 03:32 Follow up: Response: No adverse reaction; IV Status: Infusion continued upon transfer al5 01:38 Drug: Potassium Chloride IV 20 mEq IV at calculated rate once; administer over 1-2 al5 hours Route: IV; Rate: calculated rate; Site: left antecubital; 03:34 Follow up: Response: No adverse reaction; IV Status: Completed infusion; IV Intake: al5 100ml 01:40 Drug: Pantoprazole IVP 80 mg IVP once Route: IVP; Site: right antecubital; ha1 02:15 Follow up: Response: No adverse reaction al5 01:54 Drug: Rocuronium IVP 100 mg IVP once Route: IVP; Site: right antecubital; jb4 02:17 Follow up: Response: No adverse reaction; RASS: Moderate sedation (-3) al5 02:00 Drug: Midazolam IVP or IV 0.01 mg/kg/h IV at calculated rate See Administration al5 Instructions; (Standard concentration: 100 mg / 100 mL NS); Recommended max rate 0.1 mg/kg/hr; Titrate 0.01 mg/kg/hr as often as every 30 minutes to achieve goal (see titration policy); Goal parameter RASS 0 to -2 Route: IV; Rate: calculated rate; Site: left jugular; 03:32 Follow up: Response: No adverse reaction; IV Status: Infusion continued upon transfer al5 02:05 Drug: tranexamic acid 1000 mg IV at calculated rate once; administer at a rate not to al5 exceed 100 mg per min Route: IV; Rate: calculated rate; Site: right antecubital; 02:14 Follow up: Response: No adverse reaction; IV Status: Completed infusion; IV Intake: al5 100ml 02:14 Drug: Pantoprazole IV 8 mg/hr IV at 25 ml/hr continuous; (Standard dilution is 80 mg in al5 250 mL NS) Route: IV; Rate: 25 ml/hr; Site: left antecubital; 03:32 Follow up: Response: No adverse reaction; IV Status: Infusion continued upon transfer al5 03:19 Drug: Mannitol IV 25% 0.5 g/kg IV at per protocol once; Administer over 2-6 hours kl {Note: 31.75 gm bolus .} Route: IV; Rate: 31.75 bolus; Site: left antecubital; 03:32 Follow up: Response: No adverse reaction; IV Status: Completed infusion; 31.75 gm bolus al5 completed 03:33 Drug: Potassium Chloride IV 20 mEq IV at calculated rate once; administer over 1-2 al5 hours Route: IV; Rate: calculated rate; Site: left jugular; 03:33 Follow up: Response: No adverse reaction; IV Status: Infusion continued upon transfer al5 03:33 Not Given (patient responding to sedations welll): morphineor iv 4 mg IVP once over 4 al5 mins 03:34 Not Given (patient responding to sedation medicines given, mary PÉREZ and this nurse al5 returned medication to [facility]): midazolamor iv 5 mg IVP once 03:37 Not Given (patient being transferredd): mupirocinointment 2 % 1 application Topical onceal5 Disposition: 00:59 Critical Care:. sp4 Disposition Summary: 05/02/24 01:02 Transfer Ordered Notes[facility] Reason: Higher level of care sp4 Condition: Stable sp4 Problem: new sp4 Symptoms: have improved sp4 Accepting Physician: [facility], Attending MD (05/02/24 05:05) al5 Diagnosis - Cerebral Edema sp4 Forms: - Medication Reconciliation Form sp4 - SBAR form sp4 Critical care time excluding procedures: 00:59 Critical care time: Bedside Care: 36 minutes, Consultation: 12 minutes, Family sp4 Intervention: 12 minutes. Total time: 60 minutes Signatures: Dispatcher [employer] EDMichelle Lindo RN RN kl Bryson, James, RN RN jb4 Katja Monzon RN RN ha1 Blaine Vallecillo MD MD sp4 Magalys Triana RN RN al5 Corrections: (The following items were deleted from the chart) 05/01 20:40 20:40 Troponin High Sensitivity+C.LAB.BRZ ordered. EDMS EDMS 20:40 20:40 PROBNP+C.LAB.BRZ ordered. EDMS EDMS 20:41 20:41 Chest Abdomen Pelvis W Con+CT.RAD.BRZ ordered. EDMS EDMS 23:20 23:20 ETHANOL+C.LAB.BRZ ordered. EDMS EDMS 23:21 23:21 URINE DRUG SCREEN+UC.LAB.BRZ ordered. EDMS EDMS 05/02 05:05 01:02 [facility], Attending sp4 al5
[2024-05-02] MEDS ORDERED: PANTOPRAZOLE 40 MG INJ ONE (01:37)
[2024-05-02] MEDS ORDERED: TRANEXAMIC ACID 1,000 MG/10 ML VIAL IV ONE (01:37)
[2024-05-02] MEDS ORDERED: NA CHLORIDE 0.9% 250 ML ONE (01:38)
[2024-05-02] MEDS ORDERED: MIDAZOLAM HCL 0 ML ONE (01:48)
[2024-05-02] MEDS ORDERED: MIDAZOLAM HCL IN 0.9 % NACL/PF 100 MG/100 ML BAG IVPB ONE (01:48)
[2024-05-02] MEDS ORDERED: ROCURONIUM 50 MG/5 ML VIAL IV ONE (01:50)
[2024-05-02] MEDS ORDERED: NA CHLORIDE 0.9% 100 ML ONE (01:59)
--- NOTE | 2024-05-02 02:42 | RAD REPORT ---
EXAM: XR Abdomen, 1 View CLINICAL HISTORY: NGT placement. TECHNIQUE: Frontal supine view of the abdomen/pelvis. COMPARISON: CT Chest abdomen pelvis 05/01/2024. FINDINGS: Gastrointestinal tract: Unremarkable. No dilation. Organs: Excreted contrast is present within both renal collecting systems. Bones/joints: Multilevel spondylosis. No acute fracture. Tubes, lines and devices: Nasogastric tube tip projects over the left upper quadrant in the expecte d region of the stomach. IMPRESSION: Nasogastric tube tip projects over the left upper quadrant in the expected region of the stomach. Electronically signed by: Citlali Shepherd MD 05/02/2024 01:01 AM [facility] Due to temporary technical issues with the [employer] reporting system, reports are being karey d by the in-house radiologist without review as a courtesy to ensure prompt reporting the interpreting radiologist is fully responsible for the content of the report. Transcribed Date/Time: 05/02/2024 2:42 AM
--- NOTE | 2024-05-02 02:42 | RAD REPORT ---
EXAM: XR Chest, 1 View CLINICAL HISTORY: The patient is 68 years old and is Female; placement TECHNIQUE: Frontal view of the chest. COMPARISON: No relevant prior studies available. FINDINGS: Lungs: Unremarkable. No consolidation. Pleural space: Unremarkable. No pneumothorax. Heart: Unremarkable. Mediastinum: Unremarkable. Normal mediastinal contour. Bones/joints: No acute findings. Tubes, lines and devices: Endotracheal tube with tip 3.3 cm above the liliane. Left IJ central venous catheter with tip in the SVC. IMPRESSION: Endotracheal tube with tip 3.3 cm above the liliane. Electronically signed by: Chirag Olsen MD 05/02/2024 12:41 AM [facility] 8 Due to temporary technical issues with the [email or web address] reporting system, reports are being karey d by the in-house radiologist without review as a courtesy to ensure prompt reporting the interpreting radiologist is fully responsible for the content of the report. Transcribed Date/Time: 05/02/2024 2:41 AM
[2024-05-02] MEDS ORDERED: MANNITOL 20% 500 ML IV ONE (03:11)
[2024-05-02 05:54] VITALS: O2SAT 100
[2024-05-02 06:03] VITALS: BP 132/72; TEMP 98.3
--- NOTE | 2024-05-03 09:47 | EKG ---
Test Date: 2024-05-02 Test Time: 00:36:55 Workday Senior Associate: MEASUREMENT RESULTS: Intervals: Rate: 116 WV: 210 QRSD: 84 QT: 286 QTc: 397 [place]: P: 65 WV: 210 QRS: 10 T: -17 INTERPRETIVE STATEMENTS: Sinus tachycardia with 1st degree AV block Possible Left atrial enlargement Left ventricular hypertrophy Inferior infarct, age undetermined Marked ST abnormality, possible lateral subendocardial injury Abnormal ECG No previous ECG available for comparison Electronically Signed On 05-03-24 09:47:06 [employer] by Edgardo Zayas
== END 2024-05-02 05:05 | disposition short-term general hospital (02) ==
LOC: ER 20:28
DX: G93.6 Cerebral edema (principal); R50.9 Fever, unspecified; I10 Essential (primary) hypertension; Z11.52 Encounter for screening for COVID-19
CPT/HCPCS: 93005; 87040 ×2; 85025; 81001; 36415; 82140; 85610; 82565; 82947; 83605; 85730; 84443; 84484; 84439; 80053; 83880; 80307; 86140; 87804 ×2; 70450; 71260; 74177; 74018; 71045; 82805; 31500; 51702; 96372; 99291; 99292; 36556; 82077; 87811; 36600; 94002; Q9967; J2704; J3480; J2250; J0360; J2470; J3360; J3010; J3486; J7050 ×2; J7030; J0692 ×2